=== PATIENT | female | born 1985 | race Caucasian/White ===

== ENCOUNTER 2020-10-18 12:07 | Outpatient (CLI) | payer OTHER, SELFPAY ==
--- NOTE | 2020-10-18 12:32 | ECG_ITS ---
Measurements Intervals [place] Rate: 68 P: 40 MN: 150 QRS: 39 QRSD: 91 T: 27 QT: 377 QTc: 403 Interpretive Statements SINUS RHYTHM NORMAL ECG Electronically Signed On 10-18-2020 12:57:35 CDT by Roman Lovett D.O.
[2020-10-18 13:49] LABS: Hematocrit 41.3 % (37.0-47.0); Hemoglobin 13.5 g/dL (12.0-15.0); Mean Corpuscular HGB Conc 32.7 g/dl (32-36); Mean Corpuscular Hemoglobin 27.8 pg (26-34); Mean Platelet Volume 11.4 fl (7.4-10.4); Platelet Count Result 265 k/mm3 (150-375); Red Blood Count 4.86 M/mm3 (4.2-5.4); Red Cell Distribution Width 12.4 % (11.5-14.5); White Blood Count 7.8 K/mm3 (4.5-10.0)
[2020-10-18 13:56] LABS: Add Urine Microscopic? YES; Appearance Urine Clear (Clear); Bilirubin Urine Negative (Negative); Blood Urine 1+ (Negative); Color Urine Yellow (Yellow); Glucose Urine UA Negative (Negative); Ketones Urine Negative (Negative); Leukocyte Esterase Ur Negative LEU/UL (Negative); Mucus Urine Few /lpf; Nitrate Urine Negative (Negative); Protein Urine Negative (Negative); Specific Grav Ur 1.021 (1.001-1.035); Squamous Epithelial Cell Urine Few /hpf (Few); Urobilinogen Urine Negative mg/dL (<2.0); WBC Urine 0-3 /hpf
[2020-10-18 14:00] LABS: Alanine Aminotransferase 9 U/L (4-35); Albumin Level 4.6 g/dL (3.5-5.1); Alkaline Phosphatase 81 U/L (38-126); Anion Gap 5 mmol/L (8-16); Aspartate Amino Transferase 21 U/L (14-36); Bilirubin,Total 0.5 mg/dL (0.2-1.3); Blood Urea Nitrogen 10 mg/dL (7-17); Calcium 9.6 mg/dL (8.4-10.2); Carbon Dioxide 27 mmol/L (22-30); Chloride 105 mmol/L (98-107); Cholesterol 176 mg/dL (0-200); Estimated Glomerular Filt Rate > 60; Glucose 93 mg/dL (65-105); HDL Direct 55 mg/dL; Phosphorus 3.8 mg/dL (2.5-4.5); Potassium 4.2 mmol/L (3.4-5.0); Sodium 137 mmol/L (137-145); Triglycerides 170 mg/dL (<150)
[2020-10-18 14:05] LABS: D Dimer 0.27 ug/mL (<0.48)
[2020-10-18 14:11] LABS: LDL Cholesterol Direct 97 mg/dL
[2020-10-18 15:06] LABS: Folic Acid > 20.0 ng/mL (2.76->20)
--- NOTE | 2020-10-21 13:12 | WPDHOLTEREM ---
Holter/Event Monitor Holter/Event Monitor Date of procedure: 10/21/20 Procedure Type: 48 hour Holter monitor Diagnosis: palpitations Indications: palpitations Image/Tracing Quality: good Finding: a total 47 hours and 59 minutes for his analyzed. Underlying normal sinus rhythm heart rate variability between 47 and 141 beats per minute with an average heart rate of 74 beats per minute. The AV and IV conduction systems were within normal limits. The longest RR interval was 1.7 seconds. No significant pauses. Frequent ventricular ectopy 5,051 beats. 504 were in triplets formed. One thousand three hundred forty-two couplets, 2972 isolated PVCs, 144 interpolated PVCs and 44 beats were in a pattern of ventricular bigeminy. Occasional supraventricular ectopy also noted but with runs of supraventricular tachycardia. Longest run was also the fastest run at a rate of 203 beats per minute and was for 51 beats. There is also 2 atrial pairs. Symptomatic events of rapid heart beating and palpitations correlated to normal sinus rhythm with PVCs. Also an episode of heart rate spiked correlated to the episode supraventricular tachycardia with a maximum rate of 203 beats per minute. Conclusion: 1. Sinus rhythm with average heart rate of 74 beats per minute. 2. frequent ventricular ectopy including ventricular triplets, couplets, interpolated PVCs, isolated PVCs and ventricular trigeminy 3. Supraventricular tachycardia as noted on 2 occasions. Longest episode being 451 beats at a rate of 203 beats per minute. Number for symptom events correlate to sinus rhythm with PVCs as well as the longest run of supraventricular tachycardia
== END 2020-10-18 12:08 | disposition home or self-care (01) ==
PROVIDERS: PCP Emergency Medicine; Visit Provider Emergency Medicine
DX: R00.2 Palpitations (principal); Z00.01 Encounter for general adult medical examination with abnormal findings
CPT/HCPCS: 36415; 80061; 80069; 80076; 81001; 82607; 82746; 84443; 85027; 85380; 93005; 93225; 93226

== ENCOUNTER 2020-10-20 13:58 | Outpatient (CLI) | payer OTHER, SELFPAY ==
--- NOTE | 2020-10-20 | ECHO_ITS ---
Patient Info Name: Elvia Slater Age: 35 years : 1985 Gender: Female Ht: 62 in Wt: 200 lbs BSA: 2.04 m2 HR: 78 bpm BP: 118 / 89 mmHg Heart Rhythm: Sinus Rhythm Technical Quality: Good Exam Date: 10/20/2020 2:25 PM Exam Location: [facility] Patient Status: Outpatient Admit Date: 10/20/2020 Staff Ordering Physician: Tod Panda MD Piling Setter: Cristobal Hollis RDCS, RT Attending Provider: Tod Panda MD Referring Physician: Farzad BUCHANAN; Exam Type: CA echo doppler color flow Study Info Indications R00.2 - Palpitations Complete two-dimensional, color flow and Doppler transthoracic echocardiogram is performed. Strain analysis performed. Summary 1. Complete two-dimensional, color flow and Doppler transthoracic echocardiogram is performed. 2. Normal LV size and wall thickness, normal LV systolic and diastolic function, LVEF 60-65%. GLS-17%. Normal valve structure with no significant valvular abnormality on the Doppler. Unable to assess RVSP due to inadequate TR jet velocity. Normal sinus rhythm. Left Ventricle Left ventricular chamber dimension is normal. Left ventricular systolic function is normal, estimated at 60-65%. There is no increased left ventricular wall thickness. The left ventricular diastolic function is normal. Right Ventricle Right ventricular chamber dimension is normal. Right ventricular systolic function is normal. Left Atria Left atrial chamber dimension is normal. Right Atria Right atrial chamber dimension is normal. Aortic Valve The aortic valve is normal. There is no aortic valve stenosis. Pulmonic Valve The pulmonic valve is normal. There is trace pulmonic regurgitation. Mitral Valve The mitral valve has normal leaflets. There is no mitral valve regurgitation. Tricuspid Valve The tricuspid valve leaflets are normal. There is trace tricuspid valve regurgitation. Pericardium/Pleural The pericardium appears normal. Aorta The aortic root size at the sinus of Valsalva is normal. Left Ventricular Outflow Tract Name Value Normal LVOT 2D LVOT Diameter 2.0 cm LVOT Doppler LVOT Peak Gradient 4 mmHg LVOT Mean Gradient 2 mmHg LVOT VTI 20 cm LVOT VTI/AV VTI Ratio 0.9 LVOT Stroke Volume 63 ml LVOT CO 4.2 l/min LVOT CI 2.0 l/min/m2 Mitral Valve Name Value Normal MV Doppler MV Decel [place] 347 cm/s2 MV PHT 67 ms MV Area (PHT) 3.3 cm2 4.0-5.0 MV Diastolic Function MV E Peak Velocity 81 cm/s
== END 2020-10-20 13:59 | disposition home or self-care (01) ==
PROVIDERS: PCP Emergency Medicine; Visit Provider Emergency Medicine
DX: R00.2 Palpitations (principal)
CPT/HCPCS: 93306

== ENCOUNTER 2020-10-23 13:58 | Emergency (ER) | payer OTHER, SELFPAY ==
--- NOTE | ~2020-10-23 | XR_ITS ---
EXAMINATION: XR chest 2V EXAM DATE: 10/23/2020 14:42 INDICATION: Palpitations for a week. TECHNIQUE: Frontal and lateral projections of the chest obtained and reviewed. There is no prior kenn dy for comparison. FINDINGS: The lungs are clear. There are no pleural effusions. The cardiomediastinal silhouette is within normal limits. There is no pneumothorax suspected. The bones and soft tissues are unremarkab le. IMPRESSION: No acute cardiopulmonary findings. Reviewed, dictated and finalized at location A.
--- NOTE | 2020-10-23 14:01 | ECG_ITS ---
Measurements Intervals [place] Rate: 96 P: 51 HI: 135 QRS: 66 QRSD: 93 T: 12 QT: 338 QTc: 427 Interpretive Statements SINUS RHYTHM NONSPECIFIC ST & T-WAVE ABNORMALITY- ANTEROLAT/INF LEADS BASELINE WANDER- I, II, III, AVL AVF, V3-V6 BORDERLINE ECG Electronically Signed On 10-23-2020 14:45:49 CDT by Roman Lovett D.O.
[2020-10-23 14:05] VITALS: BP 136/89; PULSE 83; RESP 20; TEMP 36.6; O2SAT 100
[2020-10-23 14:32] LABS: Basophils Percent Auto 0.4 % (0.2-1.2); Eosinophils Absolute Auto 0.2 K/mm3 (0-0.3); Eosinophils Percent Auto 1.8 % (0-4.4); Hemoglobin 13.6 g/dL (12.0-15.0); Immature Granulocyte Absolute 0.02 K/mm3 (0.00-0.031); Immature Granulocyte Percent A 0.2 % (0-0.5); Lymphocytes Absolute Auto 2.18 K/mm3 (0.9-3.2); Lymphocytes Percent Auto 26.3 % (18.3-44.2); Mean Corpuscular HGB Conc 32.4 g/dl (32-36); Mean Corpuscular Hemoglobin 27.3 pg (26-34); Mean Corpuscular Volume 84.3 fl (80-100); Mean Platelet Volume 11.5 fl (7.4-10.4); Monocytes Absolute Auto 0.5 K/mm3 (0.1-0.6); Monocytes Percent Auto 5.9 % (2.6-8.5); Neutrophils Absolute Auto 5.4 K/mm3 (1.3-6.7); Neutrophils Percent Auto 65.4 % (45.5-73.1); Platelet Count Result 276 k/mm3 (150-375); Red Blood Count 4.98 M/mm3 (4.2-5.4); Red Cell Distribution Width 12.3 % (11.5-14.5); White Blood Count 8.3 K/mm3 (4.5-10.0)
[2020-10-23 14:42] LABS: INR 0.9; Partial Thromboplastin Time 25.9 SECONDS (22.3-36.8); Prothrombin Time 12.9 Seconds (11.1-14.7)
[2020-10-23 14:50] LABS: Anion Gap 10 mmol/L (8-16); Blood Urea Nitrogen 10 mg/dL (7-17); Calcium 9.7 mg/dL (8.4-10.2); Carbon Dioxide 22 mmol/L (22-30); Chloride 107 mmol/L (98-107); Estimated CRCL calculation 91 ml/min; Estimated Glomerular Filt Rate > 60; Glucose 97 mg/dL (65-105); Magnesium 1.7 mg/dL (1.6-2.3); Sodium 139 mmol/L (137-145)
[2020-10-23 15:02] LABS: Troponin I < 0.012 ng/mL (0.000-0.034)
[2020-10-23 15:04] VITALS: BP 131/90; PULSE 85; RESP 18; O2SAT 100
--- NOTE | 2020-10-23 15:11 | ED.GENADULT ---
HPI - General Adult General Chief complaint: Arrhythmia/Palpitations Stated complaint: palpitations Time Seen by Provider: 10/23/20 14:54 Source: RN notes reviewed History of Present Illness HPI narrative: Patient presents to emergency department from home for heart palpitations. Patient states that prior to arrival she had an episode where her heart was racing she states that with that everything feels tight and she feels tightness in the chest with shortness of breath and clammy states she has near syncopal episodes but is never passed out she states that she has been seen by her PCP for these episodes and has had a a cardiac echo and Holter monitor but does not know the results of this was to be seen cardiology she denies any fevers or chills abdominal pain nausea vomiting or any other symptoms of concern Related Data Allergies Allergy/AdvReac Type Severity Reaction Status Date / Time No Known Allergies Allergy Verified 10/23/20 15:03 Review of Systems Review of Systems: Narrative: Gen.: Denies fevers or chills ENT: Denies congestion Respiratory: Denies shortness of breath or cough CV: See HPI GI: Denies abdominal pain nausea, emesis or diarrhea Musculoskeletal: Denies back pain or muscle pain Neuro: Denies numbness, tingling, weakness or focal weakness Skin: Denies rash Except as documented, all other systems reviewed and negative PMFSH Past Medical History Medical History (Updated 10/23/20 @ 18:11 by Darwin Paris DO) Patient denies significant medical history Social History Social History (Updated 10/23/20 @ 15:12 by Darwin Paris DO) Smoking status: Never smoker Gender identity (if verbalized by the patient): Female Exam Narrative: Exam Narrative: APPEARANCE: No acute distress, nontoxic, resting in bed EYES: EOMI HEENT: Normocephalic, atraumatic, OMM RESPIRATORY: No respiratory distress Clear to auscultation bilaterally with no rhonchi wheezing or rales. CARDIOVASCULAR: Regular rate and rhythm without murmurs rubs or gallops. ABDOMINAL: Soft, nontender, nondistended, no rebound or guarding MUSCULOSKELETAl: Moves all extremities. No clubbing, cyanosis or edema. NEURO: Awake and alert. Following commands, speech normal, no focal deficits SKIN:: Warm, dry. No rashes lesions or abrasions PSYCHIATRIC: Normal affect/mood, Course Course Emergency Course: Patient remained on manager monitoring throughout seen ED with several PVCs noted no other arrhythmias Reviewed old records. The patient has had a Holter monitor as well as a cardiac echo. Cardiac echo showed no acute abnormalities. Patient's Holter monitor did show several PVCs as well as couplets also showed 2 episodes of SVT Called and discussed with Dr. Grarison presentation work-up agrees with plan for discharge at this time. Request patient be started on metoprolol extended release 25 mg daily with follow-up with cardiology as an outpatient Discussed with patient results of workup and diagnosis. Discussed need for follow-up with primary care, proper use of medication, and reasons to return to the emergency department. Patient understands and agrees to current treatment plan Vital Signs Vital signs: Vital Signs Temperature 97.8 F 10/23/20 14:05 Pulse Rate 83 10/23/20 14:05 Respiratory Rate 20 10/23/20 14:05 Blood Pressure 136/89 10/23/20 14:05 Pulse Oximetry 100 10/23/20 14:05 Temperature 97.8 F 10/23/20 14:05 Pulse Rate 84 10/23/20 16:58 Respiratory Rate 17 10/23/20 16:58 Blood Pressure 119/74 10/23/20 16:58 Pulse Oximetry 98 10/23/20 16:58 Medical Decision Making Vital Signs Vital Signs: Vital Signs Temperature 97.8 F 10/23/20 14:05 Pulse Rate 83 10/23/20 14:05 Respiratory Rate 20 10/23/20 14:05 Blood Pressure 136/89 10/23/20 14:05 Pulse Oximetry 100 10/23/20 14:05 Temperature 97.8 F 10/23/20 14:05 Pulse Rate 84 10/23/20 16:58 Respiratory Rate 17 10/23/20 16:58 Blo
[2020-10-23 15:48] VITALS: PULSE 78
[2020-10-23] MEDS: METOPROLOL SUCCINATE EXT REL 25 MG TABCR PO (15:48)
[2020-10-23 15:54] VITALS: BP 134/97; PULSE 77; RESP 15; O2SAT 97
[2020-10-23 16:58] VITALS: BP 119/74; PULSE 84; RESP 17; O2SAT 98
[2020-10-23 17:03] LABS: D Dimer 0.27 ug/mL (<0.48)
[2020-10-23 17:57] LABS: Troponin I < 0.012 ng/mL (0.000-0.034)
[2020-10-23 18:21] VITALS: BP 123/78; PULSE 80; RESP 13; O2SAT 100
== END 2020-10-23 18:23 | disposition home or self-care (01) ==
PROVIDERS: Emergency Provider Emergency Medicine; PCP Emergency Medicine
DX: I49.3 Ventricular premature depolarization (principal); R00.2 Palpitations; R94.31 Abnormal electrocardiogram [ECG] [EKG]
CPT/HCPCS: 36415; 71046; 80048; 83735; 84443; 84484; 85025; 85380; 85610; 85730; 93005; 99284; A9270